=== PATIENT | male | born 1975 | race Caucasian/White ===

== ENCOUNTER 2022-06-16 22:05 | Emergency (ER) | payer MEDICAID ==
[~2022-06-16] VITALS: Ht 188 cm; Wt 90.7 kg
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
--- NOTE | 2022-06-16 22:59 | NUR ---
BROUGHT TO [facility] DEPT
[2022-06-16] MEDS ORDERED: TDAP [DIPH/PERTUSSIS/TET] 0.5 ML VIAL IM ONE ×2 (23:00→23:06)
--- NOTE | 2022-06-16 23:40 | NUR ---
[employer] OFFICER MARIA G WITH PARTNER AT BEDSIDE
--- NOTE | 2022-06-16 23:49 | NUR ---
Patient discharged to home in stable condition. Written and verbal after care instructions given. Patient verbalizes understanding of instruction. Pt ambulatory with a steady gait
[2022-06-16 23:50] VITALS: BP 132/81
== END 2022-06-16 23:51 | disposition home or self-care (01) ==
LOC: ER 22:23
DX: S01.511A Laceration without foreign body of lip, initial encounter (principal); F07.81 Postconcussional syndrome; W50.0XXA Accidental hit or strike by another person, initial encounter; Y93.89 Activity, other specified; Y92.89 Other specified places as the place of occurrence of the external cause; Y99.8 Other external cause status
CPT/HCPCS: 70450-TC; 70486-TC; 72125-TC; 90715